=== PATIENT | female | born 1945 | race Caucasian/White ===

== ENCOUNTER 2020-03-02 11:19 | Emergency (ER) | payer OTHER, MEDICARE, SELFPAY ==
[2020-03-02] VITALS (9 sets, daily range): BP systolic 123–169; BP diastolic 65–98; PULSE 53–72; RESP 15–20; TEMP 36.6–37; O2SAT 94–98; BMI 34.2
--- NOTE | 2020-03-02 12:01 | HMH.EDUTC ---
[facility] [place] Disposition Clinical Impression: Occipital headache Arthralgia Qualifiers: Joint pain location: unspecified Qualified Code(s): M25.50 - Pain in unspecified joint Disposition: Home, Self-Care Condition on Discharge: Good Instructions: DI for Acute Pain -- Adult Additional Instructions: Prednisone as prescribed. Follow-up with your primary care doctor, call for appointment. Radiologist recommends follow-up MRI of the brain for findings on CT scan. Prescriptions: predniSONE [Prednisone 20mg Tab] 20 mg PO BID #10 tab Prescription Printed Referrals: Slade Caballero MD [Primary Care Provider] - Medical Decision Making - Medical Records Medical records reviewed: No: I reviewed the patient's medical records. - Vinnie Inquiry Pt receiving controlled substance: No Vital Signs: 03/02/20 12:02 03/02/20 12:20 03/02/20 12:30 Temperature 98.4 F 98.6 F Temperature Source Oral Oral Pulse Rate Pulse Rate [Left] 72 57 L 53 L Respiratory Rate 19 18 20 Blood Pressure Blood Pressure [Right Arm] 169/98 H 123/71 123/71 Blood Pressure Mean [Right Arm] 121 88 88 Blood Pressure Source [Right Arm] Automatic Cuff Automatic Cuff Automatic Cuff Blood Pressure Position Blood Pressure Position [Right Arm] Sitting Sitting Sitting 02 Sat by Pulse Oximetry 98 97 94 L Oxygen Delivery Method Room Air Room Air Room Air 03/02/20 13:00 03/02/20 13:44 03/02/20 14:00 Temperature Temperature Source Pulse Rate Pulse Rate [Left] 53 L 63 55 L Respiratory Rate 18 15 15 Blood Pressure Blood Pressure [Right Arm] 140/77 134/69 125/65 Blood Pressure Mean [Right Arm] 98 90 85 Blood Pressure Source [Right Arm] Automatic Cuff Automatic Cuff Automatic Cuff Blood Pressure Position Blood Pressure Position [Right Arm] Sitting Sitting Sitting 02 Sat by Pulse Oximetry 96 98 94 L Oxygen Delivery Method Room Air 03/02/20 14:30 03/02/20 15:05 03/02/20 16:03 Temperature 98 F Temperature Source Oral Pulse Rate 59 L Pulse Rate [Left] 60 65 Respiratory Rate 18 16 Blood Pressure 136/74 Blood Pressure [Right Arm] 126/70 136/74 Blood Pressure Mean [Right Arm] 88 94 Blood Pressure Source [Right Arm] Automatic Cuff Blood Pressure Position Sitting Blood Pressure Position [Right Arm] Supine 02 Sat by Pulse Oximetry 95 96 Oxygen Delivery Method Room Air - Lab Data Lab results reviewed: Yes: I reviewed the patient's lab results. Lab Results 03/02/20 12:50: WBC 7.7, RBC 5.16, Hgb 14.6, Hct 44.6, MCV 86.4, MCH 28.3, MCHC 32.7, RDW 14.4, Plt Count 271, MPV 8.7, Neut % (Auto) 72.8, Lymph % (Auto) 15.8, [place] % (Auto) 4.9, Eos % (Auto) 5.6, Baso % (Auto) 0.8, Neut # (Auto) 5.6, Lymph # (Auto) 1.2, [place] # (Auto) 0.4, Eos # (Auto) 0.4, Baso # (Auto) 0.1 03/02/20 12:50: Sodium 139, Potassium 4.4, Chloride 106, Carbon Dioxide 29, Anion Gap 8.4, BUN 18 H, Creatinine 1.30 H, Estimated Creat Clear 63, Estimated GFR 40 L, Est GFR ( Amer) 49 L, Glucose 101 H, Calcium 9.5, Total Bilirubin 0.6, AST 27, ALT 16, Alkaline Phosphatase 117, Total Protein 6.7, Albumin 3.8, Globulin 2.9, Albumin/Globulin Ratio 1.3 03/02/20 12:50: ESR 28 03/02/20 12:50: C-Reactive Protein 6.1 H Result diagrams: 03/02/20 12:50 03/02/20 12:50 [facility] [place] HPI - General Stated complaint: moving pain from head to feet Time Seen by Provider: 03/02/20 12:01 - History of Present Illness Provider Complaint: She c/o head ache, elevated blood pressure and pain that radiates down her right arm. She states these symptoms began several days ago. She initially recovered from having COVID-19 and influenza at the same time. She states that she was feeling better, but then she started to feel like this just before kyle. - Related Data Home Medications Medication Instructions Recorded Confirmed Amlodipine Besylate [Amlodipine 10 mg PO DAILY 08/21/18 03/02/20 10mg Tab] Aspirin [Aspir 81] 81 mg PO DAILY 08/21/18
--- NOTE | 2020-03-02 12:39 | CT_ITS ---
PROCEDURE: CT HEAD/BRAIN WO CON Referring Doctor: Corey Noble Patient Age:74Y CLINICAL INDICATION: headache >5 days COMPARISON: No exams were available for comparison TECHNIQUE: The no IV contrast. Helical axial axial images were obtained. All CT scans at the facility use one or more dose reduction, viz: automated exposure control, ma/kV adjustment per patient size (including targeted exams where dose is matched to indication, i.e. head), or iterative reconstruction technique. FINDINGS: No acute intracranial findings. No intracranial hemorrhage. No subdural or extra-axial fluid collection is evident. Posterior fossa unremarkable. . Mild cerebral atrophy age-appropriate. 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 Vague low-density deep white matter of the left frontal lobe also on axial image 22. These features most likely reflects small vessel deep white-matter ischemic gliotic changes commonly encountered aging brain However I would additionally note some mild asymmetry in the region of the supracerebellar cistern region, as seen on axial image 22, 21 20. May merely reflect some normal variation but but is slightly curious and with a combination of features I would suggest a follow-up MRI of the brain preferably with without contrast to further evaluate. Particularly if headaches should persist . Skull intact- calvarium a unremarkable. Chronic appearing paranasal sinus disease noted but no air-fluid levels: Right maxillary sinus mild mucosal thickening. Left maxillary sinus slightly more evident mucosal thickening withprobable near 2 cm retention cyst at the lateral floor left maxillary sinus. There is also moderate mucosal thickening ethmoid air cells bilaterally with some mild mucosal thickening extends to the inferior left frontal sinus. Sphenoid sinuses are clear. Orbits unremarkable.. Nomastoid effusions. Mastoid air cells are well developed and clear. Middle ear clear. IAC's symmetric. No. IMPRESSION: No acute intracranial findings No hemorrhage. No territorial infarct. No subdural collection . 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 However I would also asymmetry at the supracerebellar cistern region-this may merely reflect some anatomical asymmetry but suggest follow-up MRI of the brain (preferably with without contrast) to evaluate these above features, particularly if headaches should persist or other findings. . Chronic sinusitis changes paranasal sinuses:. Moderate mucosal thickening ethmoid air cells bilaterally. Mild mucosal thickening maxillary sinuses with probable retention cyst floor of left maxillary sinus Dictated by: Omid Jamil MD 03/02/2020 14:01 Omid Jamil MD in [place] 03/02/2020 14:01
[2020-03-02 13:06] LABS: Basophils # 0.1 K/mm3 (0-0.2); Basophils % 0.8 % (0.1-2.0); Eosinophils # 0.4 K/mm3 (0.0-0.4); Eosinophils % 5.6 % (0.1-12.0); Hematocrit 44.6 % (37.0-47.0); Hemoglobin 14.6 g/dL (12.2-16.2); Lymphocytes # 1.2 K/mm3 (0.7-4.5); Lymphocytes % 15.8 % (10-50); Mean Corpuscular HGB Conc 32.7 g/dL (31.8-35.4); Mean Corpuscular Hemoglobin 28.3 pg (27.0-31.2); Mean Corpuscular Volume 86.4 fl (81-99); Mean Platelet Volume 8.7 fl (7.4-10.4); Monocytes # 0.4 K/mm3 (0.1-1.0); Monocytes % 4.9 % (1.7-9.3); Neutrophils # 5.6 K/mm3 (1.8-7.8); Neutrophils % 72.8 % (37.0-80.0); Platelet Count 271 K/mm3 (142-424); Red Blood Count 5.16 M/mm3 (4.20-5.40); Red Cell Distribution Width 14.4 % (11.5-17.5); White Blood Count 7.7 K/mm3 (4.8-10.8)
--- NOTE | 2020-03-02 13:10 | HMH.EDGENADL ---
ED Disposition Clinical Impression: Occipital headache Arthralgia Qualifiers: Joint pain location: unspecified Qualified Code(s): M25.50 - Pain in unspecified joint Disposition: Home, Self-Care Condition on Discharge: Good Additional Instructions: Prednisone as prescribed. Follow-up with your primary care doctor, call for appointment. Radiologist recommends follow-up MRI of the brain for findings on CT scan. Prescriptions: predniSONE [Prednisone 20mg Tab] 20 mg PO BID #10 tab Prescription Printed Referrals: Slade Caballero MD [Primary Care Provider] - - Critical Care Critical Care Time: No Attestation: On 03/02/20, the high probability of a clinically significant, sudden or life threatening deterioration of the following system(s) required my full and direct attention, intervention and personal management. The time I documented below is in addition to time spent performing reported procedures but includes the following listed in this critical care notation. Medical Decision Making - Vinnie Inquiry Pt receiving controlled substance: No Vital Signs: 03/02/20 12:02 03/02/20 12:20 03/02/20 12:30 Temperature 98.4 F 98.6 F Temperature Source Oral Oral Pulse Rate [Left] 72 57 L 53 L Respiratory Rate 19 18 20 Blood Pressure [Right Arm] 169/98 H 123/71 123/71 Blood Pressure Mean [Right Arm] 121 88 88 Blood Pressure Source [Right Arm] Automatic Cuff Automatic Cuff Automatic Cuff Blood Pressure Position [Right Arm] Sitting Sitting Sitting 02 Sat by Pulse Oximetry 98 97 94 L Oxygen Delivery Method Room Air Room Air Room Air 03/02/20 13:00 03/02/20 13:44 03/02/20 14:00 Temperature Temperature Source Pulse Rate [Left] 53 L 63 55 L Respiratory Rate 18 15 15 Blood Pressure [Right Arm] 140/77 134/69 125/65 Blood Pressure Mean [Right Arm] 98 90 85 Blood Pressure Source [Right Arm] Automatic Cuff Automatic Cuff Automatic Cuff Blood Pressure Position [Right Arm] Sitting Sitting Sitting 02 Sat by Pulse Oximetry 96 98 94 L Oxygen Delivery Method Room Air 03/02/20 14:30 03/02/20 15:05 Temperature Temperature Source Pulse Rate [Left] 60 65 Respiratory Rate 18 Blood Pressure [Right Arm] 126/70 136/74 Blood Pressure Mean [Right Arm] 88 94 Blood Pressure Source [Right Arm] Automatic Cuff Blood Pressure Position [Right Arm] Supine 02 Sat by Pulse Oximetry 95 96 Oxygen Delivery Method - Lab Data Lab Results 03/02/20 12:50: WBC 7.7, RBC 5.16, Hgb 14.6, Hct 44.6, MCV 86.4, MCH 28.3, MCHC 32.7, RDW 14.4, Plt Count 271, MPV 8.7, Neut % (Auto) 72.8, Lymph % (Auto) 15.8, [place] % (Auto) 4.9, Eos % (Auto) 5.6, Baso % (Auto) 0.8, Neut # (Auto) 5.6, Lymph # (Auto) 1.2, [place] # (Auto) 0.4, Eos # (Auto) 0.4, Baso # (Auto) 0.1 03/02/20 12:50: Sodium 139, Potassium 4.4, Chloride 106, Carbon Dioxide 29, Anion Gap 8.4, BUN 18 H, Creatinine 1.30 H, Estimated Creat Clear 63, Estimated GFR 40 L, Est GFR ( Amer) 49 L, Glucose 101 H, Calcium 9.5, Total Bilirubin 0.6, AST 27, ALT 16, Alkaline Phosphatase 117, Total Protein 6.7, Albumin 3.8, Globulin 2.9, Albumin/Globulin Ratio 1.3 03/02/20 12:50: ESR 28 03/02/20 12:50: C-Reactive Protein 6.1 H Result diagrams: 03/02/20 12:50 03/02/20 12:50 - CT Data CT Scan: Head Time Received: 14:[address] Reviewed: Yes: I have viewed the radiologist's interpretation Findings Narrative: CLINICAL INDICATION: headache >5 days COMPARISON: No exams were available for comparison TECHNIQUE: The no IV contrast. Helical axial axial images were obtained. All CT scans at the facility use one or more dose reduction, viz: automated exposure control, ma/kV adjustment per patient size (including targeted exams where dose is matched to indication, i.e. head), or iterative reconstruction technique. FINDINGS: No acute intracranial findings. No intracranial hemorrhage. No subdural or extra-axial fluid collection is evident. Posterior fossa unrema
[2020-03-02 13:17] LABS: Chloride 106 mmol/L (98-107); Potassium 4.4 mmoL/L (3.5-5.1); Sodium 139 mmol/L (136-145)
[2020-03-02 13:20] LABS: Alanine Aminotransferase 16 U/L (12-78); Alkaline Phosphatase 117 U/L (38-126); Anion Gap 8.4 mEq/L (5-15); Aspartate Amino Transferase 27 U/L (14-36); Bilirubin,Total 0.6 mg/dl (0.2-1.3); Blood Urea Nitrogen 18 mg/dl (7-17); Calcium 9.5 mg/dl (8.4-10.2); Carbon Dioxide 29 mmol/L (22.0-30.0); Creatinine Clearance Estimated 63 mL/min (50-200); Estimated Glomerular Filt Rate 40 ml/min (>60); GFR (African American) 49 ML/MIN (>60); Glucose 101 mg/dl (74-100); Total Protein,Serum 6.7 g/dl (6.3-8.2)
--- NOTE | 2020-03-02 13:29 | PC.NURSE ---
patient to ct at this time
--- NOTE | 2020-03-02 13:40 | PC.NURSE ---
vital signs delayed, patient is still in ct
--- NOTE | 2020-03-02 13:43 | PC.NURSE ---
pt back from ct
[2020-03-02 14:08] LABS: C-Reactive Protein 6.1 mg/L (0-4)
[2020-03-02 14:22] LABS: Erythrocyte Sedimentation Rate 28 mm/hr (0-30)
[2020-03-02 14:23] LABS: Albumin Level 3.8 g/dl (3.5-5.0); Albumin/Globulin Ratio 1.3 (1.1-1.8); Globulin 2.9 g/dL (1.3-3.2)
== END 2020-03-02 16:04 | disposition home or self-care (01) ==
LOC: UTC 11:23 → ER 12:20
PROVIDERS: Emergency Medicine; Emergency Provider Nurse Practitioner Family; PCP Emergency Medicine
DX: R51.9 Headache, unspecified (principal); M25.551 Pain in right hip; M25.561 Pain in right knee; I10 Essential (primary) hypertension; Z86.19 Personal history of other infectious and parasitic diseases; Z87.442 Personal history of urinary calculi
CPT/HCPCS: 70450; 80053; 85025; 85651; 86140; 99284

== ENCOUNTER 2020-05-07 14:05 | Emergency (ER) | payer OTHER, MEDICARE, SELFPAY ==
[2020-05-07 14:15] VITALS: BP 153/86; PULSE 46; RESP 20; TEMP 36.9; O2SAT 97; BMI 34.9
--- NOTE | 2020-05-07 14:15 | HMH.EDUTC ---
[facility] [place] Clinical Impression: Pneumonia Qualifiers: Pneumonia type: due to unspecified organism Laterality: bilateral Lung location: lower lobe of lung Qualified Code(s): J18.9 - Pneumonia, unspecified organism Disposition: Home, Self-Care Condition on Discharge: Good Instructions: DI for Pneumonia -- Adult Additional Instructions: You have been tested for COVID19. Please isolate as if you are positive until test results received. Prescriptions: predniSONE [Prednisone 20mg Tab] 20 mg PO BID 5 Days #10 tab Transmission Status: Pending to [facility] Promethazine/Dextromethorphan [Promethazine-Dm Syrup] 5 ml PO Q4HP PRN 10 Days #180 ml PRN Reason: Cough Transmission Status: Pending to [facility] Azithromycin [Z-Delroy 250mg Tab] 250 mg PO DIRECTED #6 tab Transmission Status: Pending to [facility] Referrals: Slade Caballero MD [Primary Care Provider] - Time of Disposition: 15:07 Medical Decision Making - Vinnie Inquiry Pt receiving controlled substance: No Vital Signs: 05/07/20 14:15 Temperature 98.4 F Temperature Source Oral Pulse Rate [Right Brachial] 46 L Respiratory Rate 20 Blood Pressure [Right Arm] 153/86 H Blood Pressure Mean [Right Arm] 108 Blood Pressure Source [Right Arm] Automatic Cuff Blood Pressure Position [Right Arm] Sitting 02 Sat by Pulse Oximetry 97 Oxygen Delivery Method Room Air Orders (Tests/Meds): ORDERS Category Date Time Status XR chest portable Stat Exams 05/07/20 14:29 Taken Covid-19 Nasal PCR ([facility]) Routine Lab 05/07/20 14:25 Received - Radiology Data #1 Image(s): Chest Image Reviewed: Yes I reviewed the patient's radiology image Preliminary Findings: Abnormal [facility] [place] HPI - General Stated complaint: fever,cough Time Seen by Provider: 05/07/20 14:16 - History of Present Illness Provider Complaint: Patient has had cough and fever X 5 days. She was seen at [facility] ER on Wednesday 05/03. Diagnosed with Influenza B and started on Tamiflu. Still has cough, fever. Can't sleep due to cough and feels like shortness of breath getting worse. Cough is productive of yellow sputum. Coughs so hard that she vomits. No known exposure to COVID19 but was not tested earlier this week. Onset (ago): day(s) (5) Location: chest Relieving factors: none Exacerbating factors: none Associated symptoms: cough, shortness of breath Treatments prior to arrival: other (Tamiflu) - Related Data Home Medications Medication Instructions Recorded Confirmed Amlodipine Besylate [Amlodipine 10 mg PO DAILY 08/21/18 03/02/20 10mg Tab] Aspirin [Aspir 81] 81 mg PO DAILY 08/21/18 03/02/20 buPROPion HCL [Wellbutrin SR 150mg 150 mg PO DAILY 08/21/18 03/02/20 Tablet] carvediloL [Carvedilol 12.5mg Tab] 12.5 mg PO BID 06/02/19 03/02/20 Cholecalciferol (Vitamin D3) 2,000 unit PO DAILY 03/02/20 03/02/20 [Vitamin D3 1,000 Unit Cap] Magnesium 400 mg PO DAILY 03/02/20 03/02/20 Previous Rx's Medication Instructions Recorded predniSONE [Prednisone 20mg 20 mg PO BID #10 tab 03/02/20 Tab] Azithromycin [Z-Delroy 250mg Tab] 250 mg PO DIRECTED #6 tab 05/07/20 Promethazine/Dextromethorphan 5 ml PO Q4HP PRN 10 Days #180 ml 05/07/20 [Promethazine-Dm Syrup] predniSONE [Prednisone 20mg 20 mg PO BID 5 Days #10 tab 05/07/20 Tab] Allergies Allergy/AdvReac Type Severity Reaction Status Date / Time No Known Allergies Allergy Verified 03/02/20 12:09 [facility] History - Hepatitis A Screen Attestation statement:: This patient has been screened for Hepatitis A risk factors. I have reviewed the patient's past medical history: Yes Medical History: Reports:: Anxiety, Hypertension, Kidney Stones Denies:: Diabetes Mellitus Type 1, Diabetes Mellitus Type 2, Internal Pacemaker, Lung Disease, Seizures Laterality Cases: Bilateral: Tonsillectomy Other Surgeries: Yes: Cardiac Catheterization (2016), Colon Resection, Hernia Rep
[2020-05-07 14:28] VITALS: BMI 34.9
--- NOTE | 2020-05-07 14:29 | XR_ITS ---
PROCEDURE: XR CHEST PORTABLE CLINICAL HISTORY: COUGH, SOA COMPARISON: No exams were available for comparison FINDINGS: The cardiomediastinal silhouette and pulmonary vascularity are within normal limits. The lungs are clear without infiltrates, suspicious nodules, or pleural effusions. Left hemidiaphragm is slightly elevated. No acute bony findings. IMPRESSION: No acute findings. Dictated by: Dylan Desai MD 05/07/2020 15:31 Dylan Desai MD in [place] 05/07/2020 15:31
[2020-05-07 15:09] VITALS: BP 153/86; PULSE 46; RESP 20; TEMP 36.9; O2SAT 97
== END 2020-05-07 15:11 | disposition home or self-care (01) ==
PROVIDERS: Emergency Provider Physician Assistant; PCP Emergency Medicine
DX: J18.9 Pneumonia, unspecified organism (principal); F41.9 Anxiety disorder, unspecified; I10 Essential (primary) hypertension; Z20.822 Contact with and (suspected) exposure to COVID-19; Z87.442 Personal history of urinary calculi
CPT/HCPCS: 71045; 99202; G0463; U0003

== ENCOUNTER 2020-10-30 19:03 | Emergency (ER) | payer OTHER, MEDICARE, SELFPAY ==
[2020-10-30 19:04] VITALS: BP 168/76; PULSE 70; RESP 18; TEMP 36.4; O2SAT 98; BMI 35.2
[2020-10-30 20:00] VITALS: BP 171/78; PULSE 81; O2SAT 99
[2020-10-30 21:00] VITALS: BP 134/68; PULSE 85; RESP 18; O2SAT 98
--- NOTE | 2020-10-30 21:22 | XR_ITS ---
PROCEDURE INFORMATION: Exam: XR Left Foot Exam date and time: 10/30/2020 9:22 PM Age: 75 years old Clinical indication: Left; Prior surgery; Surgery date: 6+ months; Surgery type: H/o surgery lt ankle. PT C/O pain and swelling on top of foot and ankle TECHNIQUE: Imaging protocol: XR Left foot. Views: 3 or more views. COMPARISON: No relevant prior studies available. FINDINGS: Bones/joints: Moderate hallux valgus. Bones appear osteopenic. Surgical hardware seen in the midfoot and hindfoot. Scattered degenerative changes noted. Soft tissues: Moderate dorsal soft tissue swelling noted. IMPRESSION: No acute osseous abnormality
--- NOTE | 2020-10-30 21:22 | XR_ITS ---
PROCEDURE INFORMATION: Exam: XR Left Ankle Exam date and time: 10/30/2020 9:22 PM Age: 75 years old Clinical indication: Left; Prior surgery; Surgery date: 6+ months; Surgery type: H/o surgery lt ankle; Patient HX: PT C/O pain and swelling on top of foot and ankle TECHNIQUE: Imaging protocol: XR Left ankle. Views: 3 or more views. COMPARISON: CR XR FOOT LT MIN 3V 10/30/2020 9:35 PM FINDINGS: Bones/joints: Moderate hallux valgus. Bones appear osteopenic. Surgical hardware seen in the midfoot and hindfoot. Scattered degenerative changes noted. Soft tissues: Moderate dorsal soft tissue swelling noted. IMPRESSION: No acute osseous abnormality
--- NOTE | 2020-10-30 23:07 | HMH.EDGENADL ---
ED Disposition Clinical Impression: Rash and nonspecific skin eruption Disposition: Home, Self-Care Condition on Discharge: Good Instructions: DI for Rash Additional Instructions: Follow-up with your primary care physician next week, return to emergency department for any new or concerning symptoms. As as we discussed, take the Bactrim as we discussed. Referrals: Slaed Caballero MD [Primary Care Provider] - - Critical Care Critical Care Time: No Attestation: On 10/30/20, the high probability of a clinically significant, sudden or life threatening deterioration of the following system(s) required my full and direct attention, intervention and personal management. The time I documented below is in addition to time spent performing reported procedures but includes the following listed in this critical care notation. Medical Decision Making - Vinnie Inquiry Pt receiving controlled substance: No Vital Signs: 10/30/20 19:04 10/30/20 20:00 10/30/20 21:00 Temperature 97.6 F Temperature Source Oral Pulse Rate 81 85 Pulse Rate [Left Radial] 70 Respiratory Rate 18 18 Blood Pressure 171/78 H 134/68 Blood Pressure [Right Arm] 168/76 H Blood Pressure Mean [Right Arm] 106 Blood Pressure Source Automatic Cuff Automatic Cuff Blood Pressure Source [Right Arm] Automatic Cuff Blood Pressure Position Sitting Sitting Blood Pressure Position [Right Arm] Sitting 02 Sat by Pulse Oximetry 98 99 98 Oxygen Delivery Method Room Air Room Air Room Air 10/30/20 23:24 Temperature 98.2 F Temperature Source Oral Pulse Rate 88 Pulse Rate [Left Radial] Respiratory Rate 18 Blood Pressure 150/77 H Blood Pressure [Right Arm] Blood Pressure Mean [Right Arm] Blood Pressure Source Automatic Cuff Blood Pressure Source [Right Arm] Blood Pressure Position Sitting Blood Pressure Position [Right Arm] 02 Sat by Pulse Oximetry Oxygen Delivery Method Room Air Medical Decision Narrative: 5-year-old female presented to emergency department with left-sided ankle pain. Diagnosis includes fracture, surgical hardware movement, cellulitis, abscess, rash, pedal edema and others. X-ray was completed and no obvious deformities or changes on this x-ray. Given the patient's physical exam, was not consistent with cellulitis, patient had bilateral pedal edema there is no change in edema of the left side, no warmth, weeping. Suspect the patient has an overlying rash as discussed with the patient as well return precautions. She is advised not to take the cephalexin that he was prescribed, was told that she could take Bactrim if she wished which had also been prescribed to her. Advised her to take a picture of it, and follow-up with her PCP next week that where she could have comparison show any evolution. Patient was comfortable this plan was discharged in stable condition. General Adult HPI - General Chief complaint: Skin/Abscess/Foreign Body Stated complaint: possible cellulitis in L ankle Time Seen by Provider: 10/30/20 21:00 Mode of Arrival: Ambulatory Limitations: No Limitations Description of Symptoms (Recalled from ER Triage Doc. by RN): Pt reports left ankle pain and swelling since yesterday after attending a conference. Pt was seen by a [facility] 10/29 and they placed her on cephalexin and doxycycline for cellulitis. Pt says the pain has gotten worse. She says pain is to touch and when she walks. Erythema to left ankle present as well as pitting edema. Pittiing edema is consistent on right ankle. She denies fever. Denies N/V/D. Denies cough. Denies SOA or CP. - History of Present Illness HPI narrative: Female who is presenting to emergency department with left ankle pain. She has had a rash on her left ankle last few days, she went to an urgent care center on the , and then went to another emergency department on the . At the urgent care center they gave her doxycycline and Keflex due to concern for cellulitis, and at the em
[2020-10-30 23:24] VITALS: BP 150/77; PULSE 88; RESP 18; TEMP 36.8; O2SAT 100
== END 2020-10-30 23:26 | disposition home or self-care (01) ==
PROVIDERS: Emergency Provider Emergency Medicine; PCP Emergency Medicine
DX: R21 Rash and other nonspecific skin eruption (principal); M25.572 Pain in left ankle and joints of left foot
CPT/HCPCS: 73610; 73630; 99282